=== PATIENT | female | born 1955 | race African-American/Black ===

== ENCOUNTER 2022-08-07 19:53 | Emergency (ER) | payer OTHER ==
[~2022-08-07] VITALS: Ht 160 cm; Wt 95.0 kg
[2022-08-07 20:01] VITALS: BP 143/70; RESP 16; TEMP 98.9; O2SAT 97
[2022-08-07 20:17] VITALS: PULSE 87
[2022-08-07] MEDS ORDERED: IBUP-2029 MT (21:48)
[2022-08-07] MEDS ORDERED: LORAZEPAM 0.5MG TABLET PO ONE (22:00)
== END 2022-08-07 22:59 | disposition home or self-care (01) ==
LOC: ER 19:53
DX: S46.911A Strain of unspecified muscle, fascia and tendon at shoulder and upper arm level, right arm, initial encounter (principal); V49.49XA Driver injured in collision with other motor vehicles in traffic accident, initial encounter; Y93.89 Activity, other specified; Y92.89 Other specified places as the place of occurrence of the external cause; Y99.8 Other external cause status; Z87.19 Personal history of other diseases of the digestive system
CPT/HCPCS: 99281; 99282